=== PATIENT | male | born 1995 | race Caucasian/White ===

== ENCOUNTER 2018-07-16 22:12 | Inpatient (IN) | payer BC ==
--- NOTE | 2018-07-16 22:47 | PDOC ---
History of Present Illness - General Chief Complaint: Pain Stated Complaint: PAIN Time Seen by Provider: 07/16/18 22:32 History Source: Patient Exam Limitations: No Limitations - History of Present Illness Initial Comments: 07/16/18 22:49 Aaron is a 23 yo M with no significant past medical history who presents emergency department with a complaint of abdominal pain. Pain is described as sharp, rated as severe, patient has not had pain like this in the past, constant. No fevers or chills. No nausea or vomiting. No urinary changes, no hematuria, no pyuria. No trauma. No recent travel. PMH: denies PSH: denies Meds: denies ALL: Amoxicillin Social: denies alcohol, drug, cigarette use ROS: GENERAL/CONSTITUTIONAL: No: fever, chills, weakness, loss of appetite. HEAD, EYES, EARS, NOSE AND THROAT: No: change in vision, ear pain, discharge, sore throat, throat swelling. CARDIOVASCULAR: No: chest pain, lightheadedness, palpitations, syncope RESPIRATORY: No: cough, shortness of breath, wheezing, hemoptysis, stridor. GASTROINTESTINAL: Yes: lower abdominal pain No: nausea, vomiting, diarrhea GENITOURINARY: No: dysuria, hematuria, frequency, urgency, flank pain. MUSCULOSKELETAL: No: back pain, neck pain, joint pain, muscle swelling or pain SKIN: No: lesions, pallor, rash or easy bruising. NEUROLOGIC: No: headache, vertigo, paresthesias, weakness ENDOCRINE: No: unexplained weight gain or loss HEMATOLOGIC/LYMPHATIC: No: anemia, easy bleeding, swelling nodes. PE: GENERAL: The patient is in no acute distress. HEAD: Normal with no signs of trauma. EYES: PERRLA, EOMI, sclera anicteric, conjunctiva clear. ENT: Ears normal, nares patent, oropharynx clear without exudates. Moist mucous membranes. NECK: Normal range of motion, supple without lymphadenopathy, JVD, or masses. LUNGS: Breath sounds equal, clear to auscultation bilaterally. No wheezes, and no crackles. HEART:Regular rate and rhythm, normal S1 and S2 without murmur, rub or gallop. ABDOMEN: Soft, suprapubic tenderness to palpation, no involuntary guarding or rebound : no testicular swelling, no testicular mass, circumcised, no discharge EXTREMITIES: Normal range of motion, no edema. NEUROLOGICAL: Cranial nerves II through XII grossly intact. Normal speech. No focal neurological deficits. MUSCULOSKELETAL: Back non-tender to palpation, no CVA tenderness SKIN: Warm, Dry, normal turgor, no rashes or lesions noted. Past History - Past Medical History Allergies/Adverse Reactions: Allergies Allergy/AdvReac Type Severity Reaction Status Date / Time amoxicillin Allergy Verified 07/16/18 22:15 COPD: No - Suicide/Smoking/Psychosocial Hx Smoking History: Never smoked *Physical Exam - Vital Signs Last Vital Signs Temp Pulse Resp BP Pulse Ox 99.0 F 90 18 168/106 H 100 07/16/18 22:13 07/16/18 22:13 07/16/18 22:13 07/16/18 22:13 07/16/18 22:13 ED Treatment Course - LABORATORY CBC & Chemistry Diagram: 07/17/18 00:51 07/17/18 00:51 Medical Decision Making - Medical Decision Making 07/16/18 23:53 Pt presents to the ER with RLQ/Suprapubic pain DD includes: renal colic, appendicitis, muscle strain Will do labs UA CT Pain meds Re assess 07/17/18 02:18 Laboratory Tests 07/17/18 07/17/18 00:51 00:51 WBC 17.5 H Hgb 16.4 Hct 49.8 H Plt Count 178 BUN 13 Creatinine 1.0 07/17/18 02:21 Lung bases are clear. The visualized cardiac chambers are normal size and configuration. Normal liver, gallbladder, pancreas, spleen, adrenal glands and kidneys. The stomach and abdominal small and large bowel are normal. There is no aortic aneurysm. There is no significant retroperitoneal lymphadenopathy. The pelvic small and large bowel are normal. The appendix is borderline dilated at 7 mm and appears mildly inflamed, with a proximal appendicolith, very suspicious for early acute appendicitis. The urinary bladder and prostate gland are normal. Small amount of pelvic free fluid is identified. No abscess or free air. There is no significant pelvic lymphadenopathy. IMPRESSION: Acute appendicitis without abscess or free air 07/17/18 02:21 Call placed to surgery 07/17/18 03:34 Pt admitted to Surgical service Clinical Impression: Acute Appendicitis, initial *DC/Admit/Observation/Transfer Diagnosis at time of Disposition: Acute appendicitis Qualifiers: Acute appendicitis type: other Qualified Code(s): K35.890 - Other acute appendicitis without perforation or gangrene - Discharge Dispostion Condition at time of disposition: Stable Decision to Admit order: Yes - Referrals - Patient Instructions - Post Discharge Activity
[2018-07-16] MEDS: SODIUM CHLORIDE 1,000 ML IV SCH (23:16)
[2018-07-16] MEDS ORDERED: morphine CARPU-JECT 4 MG/1 ML DISP.SYRIN IVPUSH ONE (23:54)
[2018-07-17] MEDS ORDERED: morphine SULFATE 4 MG/ML VIAL ONE (00:12)
[2018-07-17 01:01] LABS: BASO % 0.1 % (0-2.0); EOS % 0.5 % (0-4.5); HEMATOCRIT 49.8 % (35.4-49); HEMOGLOBIN 16.4 GM/dL (11.7-16.9); LYMPH % 9.8 % (8-40); MCH 29.7 pg (25.7-33.7); MCHC 32.9 g/dl (32.0-35.9); MEAN CELL VOLUME 90.4 fl (80-96); MEAN PLT VOLUME 10.7 fl (7.5-11.1); MONO % 5.4 % (3.8-10.2); NEUT % 84.2 % (42.8-82.8); PLATELET COUNT 178 K/MM3 (134-434); RBC 5.51 M/mm3 (4.00-5.60); WHITE BLOOD COUNT 17.5 K/mm3 (4.0-10.0)
[2018-07-17 01:27] LABS: ALBUMIN 4.4 g/dl (3.4-5.0); ALK PHOS 72 U/L (45-117); ANION GAP 7 MMOL/L (8-16); BILIRUBIN,TOTAL 0.5 mg/dL (0.2-1); BLOOD UREA NITROGEN 13 mg/dL (7-18); CALCIUM 9.6 mg/dL (8.5-10.1); CHLORIDE 103 mmol/L (98-107); CO2 29 mmol/L (21-32); GLUCOSE,RANDOM 92 mg/dL (74-106); POTASSIUM 3.9 mmol/L (3.5-5.1); SGOT/AST 41 U/L (15-37); SGPT/ALT 49 U/L (13-61); SODIUM 139 mmol/L (136-145)
[2018-07-17 02:17] LABS: URINE APPEARANCE CLEAR; URINE BILIRUBIN NEGATIVE (<2.0 mg/dL); URINE COLOR YELLOW; URINE GLUCOSE (UA) NEGATIVE (NEGATIVE); URINE KETONE NEGATIVE (NEGATIVE); URINE LEUK ESTERASE NEGATIVE (NEGATIVE); URINE NITRITE NEGATIVE (NEGATIVE); URINE PROTEIN NEGATIVE (NEGATIVE); URINE UROBILINOGEN NEGATIVE mg/dL (0.2-1.0)
[2018-07-17 04:35] LABS: INR 1.02 (0.83-1.09)
[2018-07-17] MEDS: SODIUM CHLORIDE 1,000 ML IV SCH (06:18)
[2018-07-17] MEDS ORDERED: morphine SULFATE 4 MG/ML VIAL IVPUSH PRN (07:10)
[2018-07-17] MEDS ORDERED: ONDANSETRON 4 MG/2 ML VIAL IVPUSH PRN (07:10)
--- NOTE | 2018-07-17 07:19 | HP ---
Admitting History and Physical - Admission Chief Complaint: Abdomial pain History of Present Illness: 23 yo male no significant PMH presents emergency department with a complaint of abdominal pain for 1 day. Pain is described as sharp, rated as severe, patient has not had pain like this in the past, constant. He denies fever and chills. no previous similar episodes. denies nausea and vomiting. CT shows inflamed appendix. We were asked to assess. History Source: Patient, Medical Record Limitations to Obtaining History: No Limitations - Smoking History Smoking history: Never smoked Home Medications - Allergies Allergies/Adverse Reactions: Allergies Allergy/AdvReac Type Severity Reaction Status Date / Time amoxicillin Allergy Verified 07/16/18 22:15 Penicillins Allergy Verified 07/17/18 06:17 - Home Medications Home Medications: Ambulatory Orders NK [No Known Home Medication] 07/17/18 Review of Systems - Review of Systems Constitutional: denies: Chills, Fever Eyes: denies: Blind Spots, Recent Change in Vision HENT: denies: Difficult Swallowing, Throat Pain Neck: denies: Decreased ROM, Tenderness Cardiovascular: denies: Chest Pain, Palpitations Respiratory: denies: Cough, SOB Gastrointestinal: reports: Abdominal Pain. denies: Constipation, Diarrhea Genitourinary: denies: Discharge, Dysuria Breasts: reports: No Symptoms Reported. denies: Pain Musculoskeletal: denies: Muscle Cramps, Muscle Weakness Integumentary: denies: Lesions, Rash Neurological: denies: Seizure, Syncope Endocrine: denies: Unexplained Weight Gain, Unexplained Weight Loss Hematology/Lymphatic: denies: Excessive Bleeding Psychiatric: denies: Anxiety, Depression Physical Examination Vital Signs: Vital Signs Temperature 99.0 F 07/16/18 22:13 Pulse Rate 90 07/16/18 22:13 Respiratory Rate 18 07/16/18 22:13 Blood Pressure 168/106 H 07/16/18 22:13 O2 Sat by Pulse Oximetry (%) 100 07/16/18 22:13 Vital Signs Period Temp Pulse Resp BP Sys/Davis Pulse Ox Last 24 Hr 99.0 F 90 18 168/106 100 Constitutional: Yes: Well Nourished, No Distress, Calm Eyes: Yes: Conjunctiva Clear, EOM Intact HENT: Yes: Atraumatic, Normocephalic Neck: Yes: Supple, Trachea Midline Cardiovascular: Yes: Regular Rate and Rhythm, S1, S2 Respiratory: Yes: Regular, CTA Bilaterally Gastrointestinal: Yes: Normal Bowel Sounds, Soft. No: Tenderness ...Rectal Exam: Yes: Deferred Renal/: No: CVA Tenderness - Left, CVA Tenderness - Right Extremities: No: Cool, Cyanosis Edema: No Peripheral Pulses WNL: Yes Peripheral Pulses: Left Radial: 2+, Right Radial: 2+, Left Doralis Pedis: 2+, Right Dorsalis Pedis: 2+ Integumentary: No: Jaundice, Laceration, Rash Neurological: Yes: Alert, Oriented Psychiatric: Yes: Alert, Oriented Labs: CBC, BMP 07/17/18 00:51 07/17/18 00:51 Imaging - Results Cat Scan: Report Reviewed, Image Reviewed (inflamed appendix) Problem List - Problems (1) Acute appendicitis Assessment/Plan: 23 yo male with acute appendicitis with localized RLQ peritonitis NPO and IVF hydration IV antibiotics ID consult Discussed with patient risks, benefits and alternatives of laparoscopic possible open appendectomy ectomy, including but not limited to bleeding, infection, injury to adjacent structures, leak or injury, intraabdominal abscess , incisional hernia, need for further procedures, ; alternatives include antibiotics, delayed or no surgery - risks of this include failure of nonoperative therapy, perforation, sepsis, recurrence, .Patient desires to proceed with operation - will take to OR for above. Informed consent signed for same. Code(s): K35.80 - UNSPECIFIED ACUTE APPENDICITIS Qualifiers: Acute appendicitis type: with localized peritonitis Appendicitis gangrene presence: without gangrene Appendicitis perforation presence: without perforation Appendicitis abscess presence: without abscess Qualified Code(s) : K35.30 - Acute appendicitis with localized peritonitis, without perforation or gangrene (2) Fever Code(s): R50.9 - FEVER, UNSPECIFIED Qualifiers: Encounter type: initial encounter (3) Leukocytosis Code(s): D72.829 - ELEVATED WHITE BLOOD CELL COUNT, UNSPECIFIED Qualifiers: Leukocytosis type: bandemia Qualified Code(s): D72.825 - Bandemia (4) Abdominal pain in male Code(s): R10.9 - UNSPECIFIED ABDOMINAL PAIN
[2018-07-17 07:36] VITALS: BMI 22.9
[2018-07-17] MEDS ORDERED: PANTOPRAZOLE 40 MG TABLET (FP) PO SCH (10:00)
[2018-07-17] MEDS ORDERED: LACTATED RINGERS SOLUTION 1,000 ML IV SCH (10:00)
--- NOTE | 2018-07-17 15:21 | CON.ID ---
Consult Consult Specialty:: infectious diseases Reason for Consultation:: ac appendicitis - History of Present Illness Chief Complaint: abd pain History of Present Illness: 23 y/o abd pain coming to the hospital for ac abd pain in the rt lower quadrant patient was seen by surgery and worked up and found to have ac appendicitis patient is being taken to the operating room. Patient has allergy to pcn has received levaquin and flagyl patient having fever and leukocytosis - History Source History Provided By: Patient Limitations to Obtaining History: No Limitations - Alcohol/Substance Use Hx Alcohol Use: No - Smoking History Smoking history: Never smoked Have you smoked in the past 12 months: No Home Medications - Allergies Allergies/Adverse Reactions: Allergies Allergy/AdvReac Type Severity Reaction Status Date / Time amoxicillin Allergy Verified 07/16/18 22:15 Penicillins Allergy Verified 07/17/18 06:17 - Home Medications Home Medications: Ambulatory Orders NK [No Known Home Medication] 07/17/18 Review of Systems - Review of Systems Constitutional: reports: Fever Eyes: reports: No Symptoms HENT: reports: No Symptoms Neck: reports: No Symptoms Cardiovascular: reports: No Symptoms Respiratory: reports: No Symptoms Gastrointestinal: reports: Abdominal Pain Genitourinary: reports: No Symptoms Musculoskeletal: reports: No Symptoms Integumentary: reports: No Symptoms Neurological: reports: No Symptoms Endocrine: reports: No Symptoms Hematology/Lymphatic: reports: No Symptoms Psychiatric: reports: No Symptoms Physical Exam Vital Signs: Vital Signs Temperature 98.9 F 07/17/18 09:49 Pulse Rate 107 H 07/17/18 09:49 Respiratory Rate 16 07/17/18 09:49 Blood Pressure 136/73 07/17/18 09:49 O2 Sat by Pulse Oximetry (%) 100 07/16/18 22:13 Constitutional: Yes: Well Nourished, Calm, Mild Distress Eyes: Yes: Conjunctiva Clear Neck: Yes: Supple, Trachea Midline Cardiovascular: Yes: Regular Rate and Rhythm Respiratory: Yes: Regular, CTA Bilaterally Gastrointestinal: Yes: Hypoactive Bowel Sounds, Tenderness, Other. No: Tenderness, Rebound Musculoskeletal: Yes: WNL Extremities: Yes: WNL Labs: CBC, BMP 07/17/18 00:51 07/17/18 00:51 Imaging - Results Cat Scan: Report Reviewed, Image Reviewed Assessment/Plan mark List - Problems (1) Acute appendicitis Code(s): K35.80 - UNSPECIFIED ACUTE APPENDICITIS Qualifiers: Acute appendicitis type: with localized peritonitis Appendicitis gangrene presence: without gangrene Appendicitis perforation presence: without perforation Appendicitis abscess presence: without abscess Qualified Code(s) : K35.30 - Acute appendicitis with localized peritonitis, without perforation or gangrene (2) Fever Code(s): R50.9 - FEVER, UNSPECIFIED Qualifiers: Encounter type: initial encounter (3) Leukocytosis Code(s): D72.829 - ELEVATED WHITE BLOOD CELL COUNT, UNSPECIFIED Qualifiers: Leukocytosis type: bandemia Qualified Code(s): D72.825 - Bandemia (4) Abdominal pain in male Code(s): R10.9 - UNSPECIFIED ABDOMINAL PAIN plan will continue current mgmt will see what is intraop findings depending on that we will see if to escalate abx rest as per the team
--- NOTE | 2018-07-17 17:06 | OP ---
Operative Note - Note: Operative Date: 07/18/18 Pre-Operative Diagnosis: Acute appendicitis Operation: Laparoscopic appendectomy Findings: inflamed appendix , all counts correct Post-Operative Diagnosis: Same as Pre-op Surgeon: Abel Almonte Anesthesiologist/OFFICE CLEANER: Kj Douglass Anesthesia: General, Local Specimens Removed: appendix Estimated Blood Loss (mls): 5 Drains, Volume Out (mls): 500 (patterson (removed)) Operative Report Dictated: Yes
[2018-07-17] MEDS ORDERED: PT OWN MED DRAWER 7, Y5N ONE (18:02)
[2018-07-18] MEDS ORDERED: PROPOFOL 20 ML ONE (01:13)
[2018-07-18] MEDS ORDERED: KETOROLAC TROMETHAMINE 30 MG/1 ML VIAL ONE (01:13)
[2018-07-18] MEDS ORDERED: SUCCINYLCHOLINE CHLORIDE 200 MG/10 ML VIAL ONE (01:13)
[2018-07-18] MEDS ORDERED: DEXAMETHASONE SOD PHOSPHATE 4 MG/1 ML VIAL ONE (01:13)
[2018-07-18] MEDS ORDERED: LIDOCAINE HCL/PF 2% SDV 5ML VIAL ONE (01:13)
[2018-07-18] MEDS ORDERED: fentaNYL CITRATE 250 MCG/5 ML VIAL ONE ×2 (01:13→01:50)
[2018-07-18] MEDS ORDERED: CLINDAMYCIN 600 MG PREMIX BAG IVPB ONE (01:29)
[2018-07-18] MEDS ORDERED: NEOSTIGMINE METHYLSULFATE 0.5 MG/ML - 10 ML MDV ONE (01:54)
[2018-07-18] MEDS ORDERED: BUPIVACAINE HCL/PF 0.5% (5MG/ML) 10 ML VIAL ONE (01:54)
[2018-07-18] MEDS ORDERED: GLYCOPYRROLATE 0.2 MG/1 ML VIAL ONE ×2 (01:54)
[2018-07-18] MEDS ORDERED: BUPIVACAINE HCL/PF 0.5% (5MG/ML) 10 ML VIAL IJ ONE (01:57)
[2018-07-18] MEDS ORDERED: oxyCODONE HCL 5 MG TABLET PO PRN (02:12)
[2018-07-18] MEDS ORDERED: PROMETHAZINE HCL 25 MG/1 ML VIAL IVPUSH PRN (02:12)
[2018-07-18] MEDS ORDERED: ONDANSETRON 4 MG/2 ML VIAL IVPUSH PRN ×2 (02:12→02:25)
[2018-07-18] MEDS ORDERED: morphine SULFATE 4 MG/ML VIAL IVPUSH PRN (02:25)
[2018-07-18] MEDS ORDERED: LACTATED RINGERS SOLUTION 1,000 ML IV SCH (02:25)
[2018-07-18] MEDS ORDERED: metroNIDAZOLE 250 MG/50 ML PREMIX BAG IVPB ONE (02:50)
[2018-07-18] MEDS: SODIUM CHLORIDE 1,000 ML IV SCH ×3 (03:30→15:21)
[2018-07-18 08:06] LABS: BASO % 0.1 % (0-2.0); EOS % 0.3 % (0-4.5); HEMOGLOBIN 14.5 GM/dL (11.7-16.9); MCH 30.6 pg (25.7-33.7); MCHC 33.6 g/dl (32.0-35.9); MEAN PLT VOLUME 10.2 fl (7.5-11.1); MONO % 5.6 % (3.8-10.2); PLATELET COUNT 145 K/MM3 (134-434); RBC 4.72 M/mm3 (4.00-5.60); RDW 11.9 % (11.9-15.9)
[2018-07-18 09:27] LABS: ALBUMIN 3.6 g/dl (3.4-5.0); ALK PHOS 58 U/L (45-117); ANION GAP 12 MMOL/L (8-16); BLOOD UREA NITROGEN 14 mg/dL (7-18); CHLORIDE 105 mmol/L (98-107); CO2 22 mmol/L (21-32); GLUCOSE,RANDOM 76 mg/dL (74-106); POTASSIUM 4.1 mmol/L (3.5-5.1); SGOT/AST 26 U/L (15-37); SGPT/ALT 35 U/L (13-61); SODIUM 139 mmol/L (136-145); TOT PROT 6.6 g/dl (6.4-8.2)
[2018-07-18] MEDS ORDERED: PT OWN MED DRAWER 7, Y5N ONE ×2 (09:44→17:38)
[2018-07-18] MEDS ORDERED: PANTOPRAZOLE 40 MG TABLET (FP) PO SCH (10:00)
--- NOTE | 2018-07-18 11:21 | PN ---
Progress Note, Physician - Current Medication List Current Medications: Active Medications Metronidazole (Flagyl 250mg Premixed Ivpb -) 250 mg in 50 mls @ 50 mls/hr IVPB Q8H-IV SYDNEY Last Admin: 07/18/18 09:47 Dose: 50 mls/hr Levofloxacin (Levaquin 750 Mg Premixed Ivpb -) 750 mg in 150 mls @ 100 mls/hr IVPB DAILY [facility]; Protocol Last Admin: 07/18/18 10:07 Dose: 100 mls/hr Sodium Chloride (Normal Saline -) 1,000 mls @ 125 mls/hr IV ASDIR SYDNEY Last Admin: 07/18/18 03:30 Dose: Not Given Morphine Sulfate (Morphine Sulfate) 4 mg IVPUSH Q4H PRN PRN Reason: PAIN LEVEL 7 - 10 Last Admin: 07/18/18 06:40 Dose: 4 mg Ondansetron HCl (Zofran Injection) 4 mg IVPUSH Q6H PRN PRN Reason: NAUSEA AND/OR VOMITING Stop: 07/19/18 03:00 Ondansetron HCl (Zofran Injection) 4 mg IVPUSH Q6H PRN PRN Reason: NAUSEA Oxycodone HCl (Roxicodone -) 10 mg PO Q4H PRN PRN Reason: PAIN LEVEL 6-10 Stop: 07/19/18 02:11 Pantoprazole Sodium (Protonix -) 40 mg PO DAILY [facility] Last Admin: 07/18/18 09:55 Dose: 40 mg - Objective Vital Signs: Vital Signs Temperature 98.5 F 07/18/18 09:43 Pulse Rate 81 07/18/18 09:43 Respiratory Rate 18 07/18/18 09:43 Blood Pressure 141/83 07/18/18 09:43 O2 Sat by Pulse Oximetry (%) 99 07/18/18 04:48 Labs: CBC, BMP 07/18/18 06:50 07/18/18 06:50 INR, PTT INR 1.02 (0.83-1.09) 07/17/18 04:04 Problem List - Problems (1) Acute appendicitis Code(s): K35.80 - UNSPECIFIED ACUTE APPENDICITIS Qualifiers: Acute appendicitis type: with localized peritonitis Appendicitis gangrene presence: without gangrene Appendicitis perforation presence: without perforation Appendicitis abscess presence: without abscess Qualified Code(s) : K35.30 - Acute appendicitis with localized peritonitis, without perforation or gangrene (2) Fever Code(s): R50.9 - FEVER, UNSPECIFIED Qualifiers: Encounter type: initial encounter (3) Leukocytosis Code(s): D72.829 - ELEVATED WHITE BLOOD CELL COUNT, UNSPECIFIED Qualifiers: Leukocytosis type: bandemia Qualified Code(s): D72.825 - Bandemia (4) Abdominal pain in male Code(s): R10.9 - UNSPECIFIED ABDOMINAL PAIN
--- NOTE | 2018-07-18 12:46 | PN ---
Progress Note, Physician History of Present Illness: stable no new issues post op doing well operating note noted - Current Medication List Current Medications: Active Medications Metronidazole (Flagyl 250mg Premixed Ivpb -) 250 mg in 50 mls @ 50 mls/hr IVPB Q8H-IV SYDNEY Last Admin: 07/18/18 09:47 Dose: 50 mls/hr Levofloxacin (Levaquin 750 Mg Premixed Ivpb -) 750 mg in 150 mls @ 100 mls/hr IVPB DAILY [facility]; Protocol Last Admin: 07/18/18 10:07 Dose: 100 mls/hr Sodium Chloride (Normal Saline -) 1,000 mls @ 125 mls/hr IV ASDIR SYDNEY Last Admin: 07/18/18 03:30 Dose: Not Given Morphine Sulfate (Morphine Sulfate) 4 mg IVPUSH Q4H PRN PRN Reason: PAIN LEVEL 7 - 10 Last Admin: 07/18/18 06:40 Dose: 4 mg Ondansetron HCl (Zofran Injection) 4 mg IVPUSH Q6H PRN PRN Reason: NAUSEA AND/OR VOMITING Stop: 07/19/18 03:00 Last Admin: 07/18/18 12:30 Dose: 4 mg Ondansetron HCl (Zofran Injection) 4 mg IVPUSH Q6H PRN PRN Reason: NAUSEA Oxycodone HCl (Roxicodone -) 10 mg PO Q4H PRN PRN Reason: PAIN LEVEL 6-10 Stop: 07/19/18 02:11 Last Admin: 07/18/18 11:42 Dose: 10 mg Pantoprazole Sodium (Protonix -) 40 mg PO DAILY [facility] Last Admin: 07/18/18 09:55 Dose: 40 mg - Objective Vital Signs: Vital Signs Temperature 98.5 F 07/18/18 09:43 Pulse Rate 81 07/18/18 09:43 Respiratory Rate 18 07/18/18 09:43 Blood Pressure 141/83 07/18/18 09:43 O2 Sat by Pulse Oximetry (%) 99 07/18/18 09:00 Constitutional: Yes: No Distress, Calm Cardiovascular: Yes: Regular Rate and Rhythm Respiratory: Yes: Regular, CTA Bilaterally Gastrointestinal: Yes: Normal Bowel Sounds, Soft Musculoskeletal: Yes: WNL Extremities: Yes: WNL Neurological: Yes: Alert, Oriented Psychiatric: Yes: Alert, Oriented Labs: CBC, BMP 07/18/18 06:50 07/18/18 06:50 INR, PTT INR 1.02 (0.83-1.09) 07/17/18 04:04 Assessment/Plan Problem List - Problems (1) Acute appendicitis Code(s): K35.80 - UNSPECIFIED ACUTE APPENDICITIS Qualifiers: Acute appendicitis type: with localized peritonitis Appendicitis gangrene presence: without gangrene Appendicitis perforation presence: without perforation Appendicitis abscess presence: without abscess Qualified Code(s) : K35.30 - Acute appendicitis with localized peritonitis, without perforation or gangrene (2) Fever Code(s): R50.9 - FEVER, UNSPECIFIED Qualifiers: Encounter type: initial encounter (3) Leukocytosis Code(s): D72.829 - ELEVATED WHITE BLOOD CELL COUNT, UNSPECIFIED Qualifiers: Leukocytosis type: bandemia Qualified Code(s): D72.825 - Bandemia (4) Abdominal pain in male Code(s): R10.9 - UNSPECIFIED ABDOMINAL PAIN operative note noted plan continue current mgmt once patient starts eating can stop abx
[2018-07-18 14:22] VITALS: BP 144/81; PULSE 95; TEMP 98.7
--- NOTE | 2018-07-18 19:03 | DS ---
Physical Examination Vital Signs: Vital Signs Temperature 98.7 F 07/18/18 13:00 Pulse Rate 95 H 07/18/18 13:00 Respiratory Rate 20 07/18/18 13:00 Blood Pressure 144/81 07/18/18 13:00 O2 Sat by Pulse Oximetry (%) 99 07/18/18 09:00 Vital Signs Period Temp Pulse Resp BP Sys/Davis Pulse Ox Last 24 Hr 98.5 F-98.9 F 80-106 10-20 141-163/74-94 96-100 Findings/Remarks: Tolerating diet, OOB and ambulating, voiding. stable for discharge home Constitutional: Yes: Well Nourished, No Distress, Calm Eyes: Yes: Conjunctiva Clear, EOM Intact HENT: Yes: Atraumatic, Normocephalic Neck: Yes: Supple, Trachea Midline Respiratory: Yes: Regular, CTA Bilaterally Gastrointestinal: Yes: Normal Bowel Sounds, Soft ...Rectal Exam: Yes: Deferred Renal/: No: CVA Tenderness - Left, CVA Tenderness - Right Extremities: No: Cool, Cyanosis Edema: No Peripheral Pulses WNL: Yes Peripheral Pulses: Left Radial: 2+, Right Radial: 2+, Left Doralis Pedis: 2+, Right Dorsalis Pedis: 2+ Wound/Incision: Yes: Clean/Dry, Well Approximated Neurological: Yes: Alert, Oriented Psychiatric: Yes: Alert, Oriented Labs: CBC, BMP 07/18/18 06:50 07/18/18 06:50 Discharge Summary Reason For Visit: ACUTE APPENDICITIS Current Active Problems Abdominal pain in male (Acute) Acute appendicitis (Acute) Fever (Acute) Leukocytosis (Acute) Procedures: Principal: Laparoscopic Appendectomy Hospital Course: Admitted for emergency ambulatory surgery. uneventful procedure. stable for discharge home Condition: Improved - Instructions Diet, Activity, Other Instructions: Postoperative instructions: You had a laparoscopic appendectomy on 07/17/[address] Abel Almonte of [facility]. Activity: Resume your usual activities gradually, but no heavy exertion or lifting more than 10-15 pounds for 1 month. Remove dressings 48 hours after surgery; sticky tapes underneath will fall off by themselves. You may shower daily starting then, just pat the incision areas dry. No bath or swimming until skin incisions have healed. Eat lightly at first, but advance to your usual diet as tolerated. Pain: For pain, you may use and alternate Tylenol (acetaminophen) 1-2 pills and/ or ibuprofen 200 mg (1-3 pills) every 6 hours each as needed; this means that you can take one OR the other at 3-hour intervals. If you are prescribed a Tylenol/narcotic combination for severe pain, use it instead of plain Tylenol as needed and switch back when your pain starts decreasing. Do not take more than 4000mg of acetaminophen in a day. Take medications as prescribed or indicated on the labeling. Follow-up: Call Dr. Almonte office at [phone] to make your postop appointment (Saturday in approximately 2 weeks after surgery). Clinic is held in the [facility] on the first floor of [facility]. Call the office if you have: * increasing pain not responsive to pain medication * fever of 101F or higher * vomiting * unusual or increasing bleeding or drainage from wounds * increasing redness or swelling at wound sites * inability to urinate Also, see your primary medical doctor within 1-2 weeks. Disposition: HOME - Home Medications Comprehensive Discharge Medication List: Ambulatory Orders Oxycodone HCl/Acetaminophen [Percocet 5/325 -] 1 tab PO Q6H #40 tab MDD 5 levoFLOXacin [Levaquin -] 500 mg PO DAILY #7 tablet 07/18/18
--- NOTE | 2018-07-21 16:53 | PATH ---
Surgical Pathology Report Patient Name: JILL [facility]VER [facility]. Rec. #: [id number] /Age/Gender: 1995 (Age: 23) / M Account: [id number] Location: [address] [place] [address] Taken: 07/18/2018 Received: 07/18/2018 Reported: 07/21/2018 Physicians: Abel Almonte M.D. Specimen(s) Received APPENDIX Clinical History Acute appendicitis Final Diagnosis APPENDIX, LAPAROSCOPIC APPENDECTOMY: ACUTE APPENDICITIS AND PERIAPPENDICITIS. Electronically Signed Latosha Strickland M.D. Gross Description Received in formalin, labeled "appendix," is a 5.5 cm. in length vermiform appendix with a stapled margin of resection and moderate attached fat. The serosa is skaggs-hendricks and smooth. Sectioning reveals an unremarkable lumen. The wall of the appendix averages 0.1 cm. in thickness. [employer] Experience Specialist sections are submitted in one cassette. /07/18/2018 saudi07/18/2018
== END 2018-07-18 19:36 | disposition home or self-care (01) | DRG 343 ==
LOC: JER 22:12 → JERBED 07-17 03:08 → J6S 07-17 05:44
PROC: 0DTJ4ZZ Resection of Appendix, Percutaneous Endoscopic Approach (ICD-10-PCS; principal; 2018-07-18)
DX: K35.80 Unspecified acute appendicitis (principal); D72.829 Elevated white blood cell count, unspecified; R50.9 Fever, unspecified; Z88.0 Allergy status to penicillin
CPT/HCPCS: 36415; 74177-TC; 80053; 81003; 85025; 85610; 86850; 86900; 86901; 87086; 88304-TC; 94760; 99283-25; J7030